=== PATIENT | female | born 1950 | race Caucasian/White ===

== ENCOUNTER 2017-07-31 15:24 | Emergency (ER) | payer MEDICARE, OTHER ==
[~2017-07-31] VITALS: Ht 167.6 cm; Wt 64.4 kg
[2017-07-31] MEDS ORDERED: LEVO125T PO (15:38)
[2017-07-31] MEDS ORDERED: ESTR1PAT10 TD (15:38)
[2017-07-31] MEDS ORDERED: ESTR10TA VG (15:38)
--- NOTE | 2017-07-31 15:56 | NUR ---
Patient discharged to home in stable conditon & staedy gait. Written and verbal after care instructions given to patient & spouse. Patient and spouse verbalized understanding of instructions.
== END 2017-07-31 15:58 | disposition home or self-care (01) ==
LOC: ER 15:25
DX: S61.431A Puncture wound without foreign body of right hand, initial encounter (principal); E03.9 Hypothyroidism, unspecified; Z90.710 Acquired absence of both cervix and uterus; Z91.013 Allergy to seafood; Z79.899 Other long term (current) drug therapy; W60.XXXA Contact with nonvenomous plant thorns and spines and sharp leaves, initial encounter; Y93.89 Activity, other specified; Y92.89 Other specified places as the place of occurrence of the external cause; Y99.8 Other external cause status
CPT/HCPCS: A4663